=== PATIENT | female | born 1960 | race Caucasian/White ===

== ENCOUNTER → 2018-06-19 | Outpatient (CLI) | payer BC, OTHER ==
--- NOTE | 2018-06-19 13:50 | MM ---
Reason for exam: screening (asymptomatic). History: Patient is postmenopausal. Physical Findings: A clinical breast exam by your physician is recommended on an annual basis and results should be correlated with mammographic findings. MG 3D Screening Mammo W/Cad Bilateral CC and MLO view(s) were taken. The breast tissue is heterogeneously dense. This may lower the sensitivity of mammography. There are benign appearing round calcifications bilaterally. Asymmetric breast tissue right upper outer quadrant anteriorly. There is no discrete abnormality. ASSESSMENT: Benign, BI-RAD 2 RECOMMENDATION: Routine screening mammogram of both breasts in 1 year.
== END | disposition home or self-care (01) ==
LOC: RADMAMWWP 09:08
PROVIDERS: ATTEND Family Medicine
DX: Z12.31 Encounter for screening mammogram for malignant neoplasm of breast (principal)
CPT/HCPCS: 77063; 77067

== ENCOUNTER 2020-08-24 20:32 | Emergency (ER) | payer BC, OTHER ==
[2020-08-24 21:18] VITALS: TEMP 99.8
[2020-08-24] MEDS ORDERED: ACETAMINOPHEN TAB 500 MG TAB PO STA (21:41)
--- NOTE | 2020-08-24 21:44 | ED ---
URI HPI - General Chief Complaint: Upper Respiratory Infection Stated Complaint: fever,cough,headache Time Seen by Provider: 08/24/20 21:35 Source: patient Mode of arrival: ambulatory Limitations: no limitations - History of Present Illness Initial Comments: 60-year-old female patient presents to the emergency department today for evaluation of cough, congestion, low-grade fevers. States she also has a headache. States symptoms started a couple days ago, fevers last night. Did take ibuprofen around 3:00 today. Reports body aches and fatigue. Denies any chest pain or shortness of breath. Denies rash. Denies loss of taste or smell. Patient denies any recent rash, abdominal pain, nausea, vomiting, diarrhea, constipation, back pain, numbness, tingling, dizziness, weakness, hematuria, dysuria, urinary urgency, urinary frequency, or any other complaints. - Related Data Allergies Allergy/AdvReac Type Severity Reaction Status Date / Time amoxicillin Allergy Rash/Hives Verified 08/24/20 21:16 Review of Systems ROS Statement: Those systems with pertinent positive or pertinent negative responses have been documented in the HPI. ROS Other: All systems not noted in ROS Statement are negative. Past Medical History Past Medical History: No Reported History History of Any Multi-Drug Resistant Organisms: None Reported Past Surgical History: No Surgical Hx Reported Past Psychological History: No Psychological Hx Reported Smoking Status: Never smoker Past Alcohol Use History: None Reported Past Drug Use History: None Reported General Exam Limitations: no limitations General appearance: alert, in no apparent distress, other (Physical well- developed, well-nourished adult female patient in no acute distress. Vital signs upon presentation are temperature 99.8F, pulse 103, respirations 18, blood pressure 165/84, pulse ox 96% on room air.) Eye exam: Present: normal appearance, PERRL, EOMI. Absent: scleral icterus, conjunctival injection, periorbital swelling ENT exam: Present: normal exam, normal oropharynx, mucous membranes moist Neck exam: Present: normal inspection. Absent: tenderness, meningismus, lymphadenopathy Respiratory exam: Present: normal lung sounds bilaterally. Absent: respiratory distress, wheezes, rales, rhonchi, stridor Cardiovascular Exam: Present: normal rhythm, tachycardia, normal heart sounds. Absent: systolic murmur, diastolic murmur, rubs, gallop, clicks GI/Abdominal exam: Present: soft, normal bowel sounds. Absent: distended, tenderness, guarding, rebound, rigid Neurological exam: Present: alert, oriented X3, CN II-XII intact Psychiatric exam: Present: normal affect, normal mood Skin exam: Present: warm, dry, intact, normal color. Absent: rash Course Vital Signs 08/24/20 08/24/20 21:14 23:43 Temperature 99.8 F H Pulse Rate 103 H 94 Respiratory 18 19 Rate Blood Pressure 165/84 162/82 O2 Sat by Pulse 96 97 Oximetry Medical Decision Making - Medical Decision Making 60-year-old female patient presents to the emergency department today for evaluation of cough, congestion, low-grade fevers. Symptoms started 2 days ago. Physical examination is unremarkable. Lungs are clear to auscultation with good air movement. Vital signs are normal. She did test positive for COVID-19. Chest x-ray is negative. Did discuss findings and results with the patient. She does not qualify for monoclonal antibodies. She'll be discharged with instructions to follow-up with her primary care physician for recheck in 1-2 days. Return parameters were discussed in detail. She verbalizes understanding and agrees with this plan. Case discussed with Dr. Lr. - Lab Data Lab Results 08/24/20 Range/Units 22:32 Coronavirus (PCR) Detected A (Not Detectd) Disposition Clinical Impression: COVID-19 Disposition: HOME SELF-CARE Condition: Good Instructions (If sedation given, give patient instructions): Coronavirus Disease 2019 (COVID-19) Additional Instructions: Increase fluids. Consider using Mucinex DM for symptom relief. Consider obtaining [id number] vitamin C, vitamin D, and zinc. Follow-up with her primary care physician for recheck in 1-2 days. Return to the emergency department for any new, worsening, or concerning symptoms. Is patient prescribed a controlled substance at d/c from ED?: No Referrals: Kamran Sargent DO [Primary Care Provider] - 1-2 days Time of Disposition: 23:24
--- NOTE | 2020-08-24 22:15 | XR ---
EXAMINATION TYPE: XR chest 1V DATE OF EXAM: 08/24/2020 COMPARISON: NONE HISTORY: Cough and fever TECHNIQUE: Single view FINDINGS: There is no heart failure nor confluent pneumonic infiltrate. Costophrenic angles are clear . Bony thorax is intact. There are no hilar masses. IMPRESSION: No active cardiopulmonary disease. Normal heart.
[2020-08-24 23:44] VITALS: BP 162/82; PULSE 94; RESP 19
== END 2020-08-24 23:45 | disposition home or self-care (01) ==
LOC: EC 20:32
DX: U07.1 COVID-19 (principal)
CPT/HCPCS: 71045; 87635; 99285